=== PATIENT | female | born 1940 | race Caucasian/White ===

== ENCOUNTER 2016-11-08 01:19 | Day surgery (SDC) | payer MEDICARE, MEDICAID ==
[~2016-11-08 01:19] MED LIST: ASPI325T32 PO; ATOR40TA69 PO; CARV6.252 PO; FLUO20CA25 PO; LACT-188 PO; MAGN400T39 PO; TRIA1CAP5 PO
[2016-11-08 08:22] LABS: BASOPHILS % (AUTO) 0.3 % (0-3); EOSINOPHILS % (AUTO) 0.7 % (0-5); MONOCYTES % (AUTO) 4.8 % (4-12); Mean Corpuscular Volume 89.3 fL (81-100); NEUTROPHILS % (AUTO) 41.3 % (40-74); Platelet Count 252 bil/L (150-400)
[2016-11-08 08:30] VITALS: BP 119/60; PULSE 60; RESP 20; O2SAT 93
[2016-11-08 08:40] LABS: INR 0.98 ratio
--- NOTE | 2016-11-08 09:15 | NUR ---
Heart cath cancelled > WBC. Admitted for a heart cath today for a + stress test done for upcoming surgery of the left wrist. Patient prepped with IV start and labs and a 16F Park catheter inserted without difficulty. WBC - on today's lab is 15.3 - Dr Cantu notified of >WBC. Case cancelled. Pt has no temp and states no temp in the last week. Chronic AM cough with some green phlem early in the AM. Pt smokes 1 pack a day. UA collected sent to lab prior to patient discharge. Park discontinued without difficulty. Cath re-scheduled for 11-29-16 with WBC check in 2 weeks prior to next heart cath.
[2016-11-08 10:04] LABS: APPEARANCE,URINE CLEAR (CLEAR,HAZY); COLOR,URINE YELLOW (YELLOW); OCCULT BLOOD,URINE NEGATIVE (NEGATIVE); PH,URINE 7.5 (5.0-8.0); UROBILINOGEN,URINE NORMAL (NORMAL)
== END 2016-11-08 23:59 | disposition home or self-care (01) ==
LOC: SOUO 01:19
PROVIDERS: ATTEND Internal Medicine
DX: R94.39 Abnormal result of other cardiovascular function study (principal); Z53.09 Procedure and treatment not carried out because of other contraindication; D72.829 Elevated white blood cell count, unspecified

== ENCOUNTER 2016-11-29 00:16 | Day surgery (SDC) | payer MEDICARE, MEDICAID ==
[2016-11-29] VITALS (12 sets, daily range): BP systolic 113–142; BP diastolic 57–66; PULSE 60–69; RESP 17–19; O2SAT 94–95
[2016-11-29 07:38] LABS: BASOPHILS % (AUTO) 0.3 % (0-3); EOSINOPHILS % (AUTO) 0.8 % (0-5); MONOCYTES % (AUTO) 4.4 % (4-12); Mean Corpuscular Hemoglobin 30.5 pg (27.0-35.0); Mean Corpuscular Volume 91.3 fL (81-100); NEUTROPHILS % (AUTO) 35.2 % (40-74); Platelet Count 254 bil/L (150-400)
[2016-11-29 08:03] LABS: INR 1.03 ratio
[2016-11-29] MEDS ORDERED: Heparin 5,000 Units/500 mL NS Premix IV ONE ×2 (08:09→09:03)
[2016-11-29] MEDS ORDERED: Nitroglycerin 50,000 mcg/250 mL D5W Premix IV ONE (08:09)
[2016-11-29] MEDS ORDERED: Heparin 1,000 Unit/mL 10 mL Inj ONE (08:09)
[2016-11-29] MEDS ORDERED: Heparin 1,000 Units/500 mL NS Premix IV ONE (08:09)
[2016-11-29] MEDS ORDERED: fentaNYL-PF 50 mCg/mL 2 mL Inj ONE (08:58)
--- NOTE | 2016-11-29 15:03 | NUR ---
Discharge Pt discharged to home with a friend, VSS and WNL on RA, groin site soft non tender. Pt stated verbal understanding of discharge instructions regarding use of hoe medications, follow up appointments, signs of worsening condition and activity restrictions. Pt left with personal belongings, discharge paperwork, IV dc'd intact at approximately 1500.
--- NOTE | 2016-11-29 19:11 | CS94 ---
[address] [address] DIAGNOSTIC CARDIAC CATHETERIZATION PATIENT: DAGOBERTO TROTTER : 1940 MR#: [id number] ADMIT: 11/29/2016 JOB ID: [id number] SERVICE DATE: 11/29/2016 PROCEDURES PERFORMED: 1. Left heart catheterization 2. Coronary angiography. INDICATIONS: A 76-year-old woman who required preoperative assessment as she has risk factors for coronary disease and she had an abnormal stress test suggesting anterior ischemia. Given this, she presents for further assessment by cardiac catheterization. DESCRIPTION OF PROCEDURE: Informed consent was obtained. The patient was brought to catheterization laboratory. Bilateral groins were prepped and draped in sterile fashion. The right femoral artery was anesthetized with lidocaine. Using modified Seldinger technique and a micropuncture kit, access was obtained and a 5-Albanian sheath was advanced. A 5-Albanian JL4 catheter was advanced over a wire and used to cannulate the left coronary artery and angiography was obtained. Catheter was removed over a wire and a 5-[place]ian JR4 catheter was advanced over a wire and used to cannulate the right coronary and angiographic views obtained. This catheter was removed and an angled pigtail catheter was advanced into the left ventricle under fluoroscopic guidance. Left ventricular pressure tracings were obtained and following pullback, aortic pressure tracings were obtained. The case was ended. An angiographic view of the right femoral access site was obtained prior to achieving hemostasis with manual compression and no complications. FINDINGS: CORONARIES: 1. Left main: This appears angiographically normal. 2. Left anterior descending artery: There is evidence for mild disease estimated in the range of 20% in the proximal vessel. In the mid segment, there is some mild disease with some associated calcification but no obstructive lesions. The vessel continues down, wrapping around the apex without any obstructive disease and good myocardial blush. The diagonal vessel are also free of obstructive disease. 3. Circumflex artery: This vessel has minor luminal irregularities throughout and essentially gives rise to branching obtuse marginal branches which are free of obstructive disease. 4. Right coronary artery. This vessel has no greater than minor luminal irregularities throughout. Left ventricular pressures (postcontrast) with a significant respiratory variation but in the range of 20-25 mm. No gradient on pullback. IMPRESSION: No evidence of obstructive coronary disease. MTDD
== END 2016-11-29 23:59 | disposition home or self-care (01) ==
LOC: SPI 00:16
PROVIDERS: ATTEND Internal Medicine
DX: R94.39 Abnormal result of other cardiovascular function study (principal); I25.10 Atherosclerotic heart disease of native coronary artery without angina pectoris; J44.9 Chronic obstructive pulmonary disease, unspecified; F17.210 Nicotine dependence, cigarettes, uncomplicated; Z79.82 Long term (current) use of aspirin; I10 Essential (primary) hypertension; E78.2 Mixed hyperlipidemia
CPT/HCPCS: 36415; 80048; 85025; 85610; 93005; 93458; 99152; 99153; C1769; J1200; J1644; J2060; J2250; J3010; J7030; Q9967